=== PATIENT | male | born 1990 | race Caucasian/White ===

== ENCOUNTER 2024-12-13 14:44 | Emergency (ER) | payer SELFPAY ==
--- NOTE | 2024-12-13 15:26 | RAD REPORT ---
EXAM: CT CHEST, ABDOMEN AND PELVIS WITHOUT CONTRAST CLINICAL INDICATION: chest pain, epigastric pain, hematemesis TECHNIQUE: CT chest, abdomen and pelvis was performed without contrast, as per department protocol. A xial, sagittal and coronal reconstructions were obtained. One or more of the following dose reduction techniques were used: Automated exposure control, adjustment of the mA and/or kV according to patient size, and/or iterative reconstruction. Unless otherwise specified, incidental findings do not require dedicated imaging follow-up. Examination is limited by the lack of intravenous contrast material. COMPARISON: No prior exam. FINDINGS: LUNGS: No evidence of airspace or interstitial process. No nodules. PLEURA: No pleural effusion. No pneumothorax. MEDIASTINUM AND LYMPH NODES: No mediastinal mass or fluid collection. Normal size mediastinal, hilar, and axillary lymph nodes. OSSEOUS STRUCTURES AND CHEST WALL: Intact. LIVER: Normal in size and contour. No focal lesion or biliary dilatation. Grossly unremarkable gallbl adder. PANCREAS: No mass, ductal dilation, or yin-pancreatic fluid. SPLEEN: Normal size. No focal lesion. ADRENALS: Normal; no mass. KIDNEYS: Normal size and contour. No hydronephrosis. URINARY BLADDER: Normal contour. GASTROINTESTINAL TRACT: No bowel obstruction, free air, significant free fluid or abscess. APPENDIX: Normal appendix. LYMPH NODES: No lymphadenopathy. MUSCULOSKELETAL: No acute or suspicious osseous abnormality. OTHER: IMPRESSION: No acute or significant abnormalities seen in the chest, abdomen or pelvis.
--- NOTE | 2024-12-13 15:26 | RAD REPORT ---
EXAMINATION: ONE VIEW CHEST XR CLINICAL INDICATION: Dyspnea;Cough TECHNIQUE: Frontal chest projection is submitted. Examination is limited by patient positioning and t echnique. COMPARISON: 09/20/2013 FINDINGS: The lungs are well inflated and clear. The heart is normal in size. No displaced fractures identified . IMPRESSION: No acute intrathoracic abnormalities.
[2024-12-13] MEDS ORDERED: PANTOPRAZOLE 40 MG INJ ONE (15:32)
[2024-12-13] MEDS ORDERED: ONDANSETRON 4 MG/2 ML VIAL ONE (15:32)
[2024-12-13] MEDS ORDERED: NA CHLORIDE 0.9% 500 ML ONE (15:33)
[2024-12-13 16:20] LABS: Absolute Eosinophils 0.3 K/uL (0-0.5); Absolute Monocytes 0.9 K/uL (0.1-1.3); Absolute Neutrophil 4.5 K/uL (1.8-8.0); Basophils % 0.5 % (0-1.3); Eosinophils % 4.4 % (0-4.4); Hemoglobin 15.6 g/dL (13.6-17.9); Lymphocytes % 25.9 % (15.3-44.8); MCH 31.2 pg (27.0-35.0); MCHC 34.8 g/dL (32.0-36.0); MCV 89.6 fL (80-100); MPV 8.7 fL (7.6-11.3); Monocytes % 11.1 % (3.3-12.3); Neutrophils % 58.1 % (41.7-73.7); Nucleated Red Blood Cells % 0.1 % (0-0); Platelets 249 thou/uL (152-406); RBC Red Blood Cell Count 5.02 M/uL (4.33-5.43); Red Cell Distribution Width 13.2 % (12.1-15.2)
[2024-12-13 16:33] LABS: Influenza A Ag Negative; Influenza B Ag Negative; SARS-CoV-2 Antigen Rapid Res Negative (Negative)
[2024-12-13 16:34] LABS: Albumin 3.9 g/dL (3.4-5.0); Albumin/Globulin Ratio 0.9 (1.1-1.8); Anion Gap 5.2 mEq/L (5.0-15.0); Bilirubin Total 0.6 mg/dL (0.2-1.0); Globulin 4.2 g/dL (2.3-3.5); Potassium 4.2 mEq/L (3.5-5.1); Protein, Total 8.1 g/dL (6.4-8.2)
--- NOTE | 2024-12-13 17:00 | ER ---
Nurse's Notes [facility] Name: Karlos Rodriguez Age: 34 yrs Sex: Male : 1990 Arrival Date: 12/13/2024 Time: 14:44 Bed 15 Private MD: Diagnosis: Hematemesis;Fever, unspecified Presentation: 12/13 14:52 Chief complaint: Patient states: Abdominal pain, fever, and N/V/D for 3 days. + cough. ll1 Started vomiting clots of blood today. Coronavirus screen: Client denies travel out of the [place] in the last 14 days. At this time, the client does not indicate any symptoms associated with coronavirus-19. Ebola Screen: Patient denies travel to an Ebola-affected area in the 21 days before illness onset. Initial Sepsis Screen: Does the patient meet any 2 criteria? No. Patient's initial sepsis screen is negative. Does the patient have a suspected source of infection? No. Patient's initial sepsis screen is negative. Risk Assessment: Do you want to hurt yourself or someone else? Patient reports no desire to harm self or others. Onset of symptoms was December 11, 2024. 14:52 Method Of Arrival: Ambulatory ll1 14:52 Acuity: KRYSTAL 3 ll1 Triage Assessment: 14:55 General: Appears uncomfortable, Behavior is calm, cooperative, appropriate for age, ll1 Reports feeling ill for fatigue for. Pain: Complains of pain in chest Quality of pain is described as aching. Neuro: Reports weakness. Respiratory: Reports shortness of breath cough that is. GI: Reports diarrhea, nausea, vomiting. 16:00 Respiratory: Onset: The symptoms/episode began/occurred yesterday, the patient has mild kj2 shortness of breath. Historical: - Allergies: 14:51 Iodine; ll1 - Home Meds: 14:51 None [Active]; ll1 - PMHx: 14:51 None; ll1 - PSHx: 14:51 None; ll1 - Immunization history:: Adult Immunizations unknown. - Infectious Disease History:: Denies. - Social history:: Smoking status: Patient denies any tobacco usage or history of. - Family history:: not pertinent. - Hospitalizations: : No recent hospitalization is reported. Screenin:15 [facility] ED Fall Risk Assessment (Adult) History of falling in the last 3 months, kj2 including since admission No falls in past 3 months (0 pts) Confusion or Disorientation No (0 pts) Intoxicated or Sedated No (0 pts) Impaired Gait No (0 pts) Mobility Assist Device Used No (0 pt) Altered Elimination No (0 pt) Score/Fall Risk Level 0 - 2 = Low Risk Maintained a safe environment, Hourly rounding (assess needs \T\ fall precautionary measures) done. Abuse screen: Denies threats or abuse. Denies injuries from another. Nutritional screening: No deficits noted. Tuberculosis screening: No symptoms or risk factors identified. Assessment: 15:30 General: Appears in no apparent distress. Behavior is calm, cooperative. Neuro: Level kj2 of Consciousness is awake, alert, Oriented to person, place, time, situation. Cardiovascular: Patient's skin is warm and dry. Respiratory: Airway is patent Respiratory effort is even, unlabored. GI: Reports nausea, vomiting. : No signs and/or symptoms were reported regarding the genitourinary system. 15:30 Respiratory: Breath sounds are clear bilaterally. kj2 16:30 Reassessment: Patient appears in no apparent distress at this time. Patient and/or kj2 family updated on plan of care and expected duration. Pain level reassessed. Patient is alert, oriented x 3, equal unlabored respirations, skin warm/dry/pink. 17:13 Reassessment: Patient appears in no apparent distress at this time. Patient and/or kj2 family updated on plan of care and expected duration. Pain level reassessed. Patient is alert, oriented x 3, equal unlabored respirations, skin warm/dry/pink. 17:16 Cardiovascular: Rhythm is regular. kj2 Vital Signs: 14:52 BP 151 / 76; Pulse 95; Resp 24; Temp 98.1; Pulse Ox 100% ; Weight 81.65 kg; Height 5 ll1 ft. 5 in. ; Pain 9/10; 16:00 BP 124 / 84; Pulse 78; Resp 20; Pulse Ox 100% ; kj2 16:57 Pulse 86; Resp 16; rn 17:14 BP 129 / 80; Pulse 80; Resp 20; Temp 98; Pulse Ox 100% ; kj2 14:52 Body Mass Index 29.95 (81.65 kg, 165.1 cm) ll1 14:52 Pain Scale: Adult ll1 ED Course: 14:48 Patient arrived in ED. cj3 14:49 Hermilo Mirza MD is Attending Physician. rn 14:53 Triage completed. ll1 14:56 Arm band placed on Patient placed in an exam room, on a stretcher. ll1 15:05 Jaimee Villanueva, ORI is Primary Nurse. kj2 15:14 CT Chest Abdomen Pelvis W/O Contrast In Process Unspecified. EDMS 15:22 Chest Single View XRAY In Process Unspecified. EDMS 15:30 Patient has correct armband on for positive identification. Bed in low position. Side kj2 rails up X 1. Provided Education on: call light. 15:45 Missed attempt(s): 20 gauge in right antecubital area. rk3 15:55 Inserted saline lock: 20 gauge in left antecubital area, using aseptic technique. Blood kj2 collected. Flushed with 10 mL NS. 16:25 Type And Screen Sent. kj2 17:16 No provider procedures requiring assistance completed. IV discontinued, intact, kj2 bleeding controlled, No redness/swelling at site. Pressure dressing applied. Administered Medications: 16:08 Drug: Pantoprazole IVP 40 mg IVP once Route: IVP; Site: left antecubital; kj2 17:13 Follow up: Response: No adverse reaction kj2 16:08 Drug: Ondansetron IVP 4 mg IVP once; over 2 minutes Route: IVP; Site: left antecubital; kj2 17:13 Follow up: Response: No adverse reaction kj2 16:08 Drug: NS 0.9% IV 500 ml 500 ml IV at 1 bolus once; to be given as a bolus over 30 kj2 minutes Volume: 500 ml; Route: IV; Rate: 1 bolus; Site: left antecubital; 17:13 Follow up: IV Status: Completed infusion; IV Intake: 500ml kj2 17:12 Not Given (Physician Discretion; MD ): pantoprazole8 mg/hr IV at 25 ml/hr continuous; kj2 (Standard dilution is 80 mg in 250 mL NS) Medication: 17:15 VIS not applicable for this client. kj2 Intake: 17:13 IV: 500ml; Total: 500ml. kj2 Outcome: 17:00 Discharge ordered by . rn 17:17 Discharged to home ambulatory, kj2 17:17 Condition: stable 17:17 Discharge instructions given to patient, Instructed on discharge instructions, follow up and referral plans. Demonstrated understanding of instructions, follow-up care, 17:38 Patient left the ED. kj2 Signatures: Dispatcher [employer] EDHermilo Lemons MD MD rn Lewis, Lynsay RN RN ll1 Jaimee Villanueva RN RN kj2 Jazmyn Bradford rk3 Armida Katz cj3 Corrections: (The following items were deleted from the chart) 14:58 14:52 BP 151 / 76; Pulse 95bpm; Resp 17bpm; Pulse Ox 100%; Temp 98.1F; 81.65 kg; Height ll1 5 ft. 5 in.; BMI: 29.9; Pain 9/10, Adult; ll1
--- NOTE | 2024-12-13 17:00 | EDPHYS ---
Physician Documentation [facility] Name: Karlos Rodriguez Age: 34 yrs Sex: Male : 1990 Arrival Date: 12/13/2024 Time: 14:44 Bed 15 Private MD: ED Physician Hermilo Mirza HPI: 12/13 15:01 This 34 yrs old Male presents to ER via Ambulatory with complaints of Vomiting Blood, rn Breathing Difficulty, Fever. 15:01 The patient presents to the emergency department with nausea, vomiting, abdominal pain. rn Onset: The symptoms/episode began/occurred 2 day(s) ago. Possible causes: unknown. The symptoms are aggravated by nothing. The symptoms are alleviated by nothing. Associated signs and symptoms: Pertinent positives: abdominal pain, diarrhea, fever, GI bleeding, nausea, vomiting. Severity of symptoms: At their worst the symptoms were moderate in the emergency department the symptoms are unchanged. The patient has not experienced similar symptoms in the past. Patient reports feeling sick for 2 days with fever, cough, myalgias. Has been throwing up for 2 days, initially did not have blood, now today has had 2 episodes of hematemesis, has clot in emesis. Reports has been having diarrhea as well, nonbloody. No chronic lung issues. Is a daily drinker drinks 3-4 beers a day. No history of GI bleed in the past.. Historical: - Allergies: 14:51 Iodine; ll1 - Home Meds: 14:51 None [Active]; ll1 - PMHx: 14:51 None; ll1 - PSHx: 14:51 None; ll1 - Immunization history:: Adult Immunizations unknown. - Infectious Disease History:: Denies. - Social history:: Smoking status: Patient denies any tobacco usage or history of. - Family history:: not pertinent. - Hospitalizations: : No recent hospitalization is reported. ROS: 15:01 Constitutional: Positive for fever and chills Cardiovascular: Negative for chest pain, rn palpitations, and edema, Respiratory: Positive for shortness of breath and cough Abdomen/GI: Positive for epigastric abdominal pain with nausea and vomiting and diarrhea. Positive for 2 episodes of hematemesis MS/Extremity: Negative for injury and deformity, Skin: Negative for injury, rash, and discoloration, Neuro: Positive for generalized weakness and malaise Exam: 15:01 Constitutional: This is a well developed, well nourished patient who is awake, alert, rn appears anxious Eyes: Pale conjunctiva absent ENT: Dry mucous membranes Cardiovascular: Regular rate and rhythm. No pulse deficits. Respiratory: Moderate tachypnea, no retractions Abdomen/GI: Soft, epigastric tenderness. No rebound or guarding Skin: No cyanosis MS/ Extremity: Pulses equal, no cyanosis. Neuro: Awake and alert, GCS 15 16:39 ECG was reviewed by the Attending Physician. rn Vital Signs: 14:52 BP 151 / 76; Pulse 95; Resp 24; Temp 98.1; Pulse Ox 100% ; Weight 81.65 kg; Height 5 ll1 ft. 5 in. ; Pain 9/10; 16:00 BP 124 / 84; Pulse 78; Resp 20; Pulse Ox 100% ; kj2 16:57 Pulse 86; Resp 16; rn 17:14 BP 129 / 80; Pulse 80; Resp 20; Temp 98; Pulse Ox 100% ; kj2 14:52 Body Mass Index 29.95 (81.65 kg, 165.1 cm) ll1 14:52 Pain Scale: Adult ll1 MDM: 14:49 Medical Screening Exam initiated rn 16:58 Differential diagnosis: Nonspecific abd pain, gastritis, cholecystitis, pancreatitis, rn appendicitis, diverticulitis, viral gastroenteritis, gastroenteritis. Differential diagnosis: Morelia-Mistry tear, ulcer, gastritis. Data reviewed: vital signs, nurses notes, lab test result(s), EKG, radiologic studies, CT scan, plain films, and as a result, I will discharge patient. Counseling: I had a detailed discussion with the patient and/or guardian regarding the historical points, exam findings, and any diagnostic results supporting the discharge/admit diagnosis, lab results, radiology results, the need for outpatient follow up, to return to the emergency department if symptoms worsen or persist or if there are any questions or concerns that arise at home. Special discussion: I discussed with the patient/guardian in detail that at this point there is no indication for admission to the hospital. It is understood, however, that if the symptoms persist or worsen the patient needs to return immediately for re-evaluation. Based on the history and exam findings, there is no indication for further emergent testing or inpatient evaluation. I discussed with the patient/guardian the need to see the [employer] professor for further evaluation of the symptoms. I discussed with the patient/guardian the need to see the primary care provider for further evaluation of the symptoms. ED course: No acute findings and workup. CT chest abdomen pelvis negative. Patient feels better after IV fluids and Zofran. Sounds like patient has systemic viral infection, given systemic symptoms then after 2 days had small amount of hematemesis, likely Morelia-Mistry tear. Has not thrown up or had episode of hematemesis since arrival here. Will discharge home with return precautions as of normal H\T\H and vitals. Normal WBC. Normal lactate. Normal ECG.. 12/13 15:00 Order name: COVID-19 Ag + Flu A+B Ag; Complete Time: 16:35 12/13 15:00 Order name: Blood Culture Adult (2) 12/13 15:00 Order name: CBC with Diff; Complete Time: 16:29 12/13 15:00 Order name: CMP; Complete Time: 16:35 12/13 15:00 Order name: Lactate w/ 2H reflex if indic.; Complete Time: 16:41 12/13 15:00 Order name: Protime (+inr) 12/13 15:00 Order name: Ptt, Activated rn 12/13 15:00 Order name: Type And Screen rn 12/13 15:00 Order name: Chest Single View XRAY; Complete Time: 15:27 rn 12/13 15:00 Order name: CT Chest Abdomen Pelvis W/O Contrast; Complete Time: 15:27 12/13 15:00 Order name: Accucheck rn 12/13 15:00 Order name: Cardiac monitoring rn 12/13 15:00 Order name: EKG - Nurse/Tech; Complete Time: 16:56 rn 12/13 15:00 Order name: IV Saline Lock - Large Bore rn 12/13 15:00 Order name: Labs collected and sent rn 12/13 15:00 Order name: O2 Per Protocol rn 12/13 15:00 Order name: O2 Sat Monitoring rn 12/13 15:00 Order name: Vital Signs rn 12/13 16:10 Order name: Labs - recollect needed: TS; Complete Time: 16:25 bc6 EC:39 Rate is 76 beats/min. Rhythm is regular. QRS [place] is Normal. SD interval is normal. QRS rn interval is normal. QT interval is normal. No Q waves. T waves are Normal. No ST changes noted. Clinical impression: Normal ECG. Interpreted by me. Reviewed by me. Administered Medications: 16:08 Drug: Pantoprazole IVP 40 mg IVP once Route: IVP; Site: left antecubital; kj2 17:13 Follow up: Response: No adverse reaction kj2 16:08 Drug: Ondansetron IVP 4 mg IVP once; over 2 minutes Route: IVP; Site: left antecubital; kj2 17:13 Follow up: Response: No adverse reaction kj2 16:08 Drug: NS 0.9% IV 500 ml 500 ml IV at 1 bolus once; to be given as a bolus over 30 kj2 minutes Volume: 500 ml; Route: IV; Rate: 1 bolus; Site: left antecubital; 17:13 Follow up: IV Status: Completed infusion; IV Intake: 500ml kj2 17:12 Not Given (Physician Discretion; ): pantoprazole8 mg/hr IV at 25 ml/hr continuous; kj2 (Standard dilution is 80 mg in 250 mL NS) Disposition Summary: 12/13/24 17:00 Discharge Ordered Notes: Location: Home rn Problem: new rn Symptoms: have improved rn Condition: Stable rn Diagnosis - Hematemesis rn - Fever, unspecified rn Followup: rn - With: Private Physician - When: As needed - Reason: Recheck today's complaints, Re-evaluation by your physician Discharge Instructions: - Discharge Summary Sheet rn - Fever, Adult rn - Gastrointestinal Bleeding rn - Hematemesis rn Forms: - Medication Reconciliation Form rn - Antibiotic linux kernel developer - Prescription Opioid Use rn - Patient Portal Instructions rn - Leadership Thank You Letter rn Prescriptions: - ondansetron 4 mg Oral Tablet,disintegrating - take 1 tablet ORAL route every 8 hours As needed; 12 tablet; Refills: 0, rn Product Selection Permitted - Augmentin 875-125 mg Oral Tablet - take 1 tablet ORAL route every 12 hours for 10 days; 20 tablet; Refills: 0, rn Product Selection Permitted - Protonix 40 mg Oral Tablet - take 1 tablet ORAL route once daily; 30 tablet; Refills: 0, Product Selection rn Permitted Signatures: Dispatcher [employer] EDHermilo Lemons MD MD rn Lewis, Lynsay RN RN ll1 Karis Kee [facility] Jaimee Villanueva RN RN kj2 Corrections: (The following items were deleted from the chart) 15:00 15:00 Chest Abdomen Pelvis Wo Con+CT.RAD.BRZ ordered. EDMS EDMS 15:00 15:00 TYPE AND SCREEN+BB.LAB.BRZ ordered. EDMS EDMS
[2024-12-13 17:27] LABS: PT Prothrombin Time 12.2 SECONDS (10-13.0); Protime INR 1.07
[2024-12-13 18:01] VITALS: O2SAT 100
[2024-12-13 18:05] VITALS: BP 129/80; TEMP 98
== END 2024-12-13 17:38 | disposition home or self-care (01) ==
LOC: ER 14:44
DX: K92.0 Hematemesis (principal); R50.9 Fever, unspecified; Z11.52 Encounter for screening for COVID-19
CPT/HCPCS: 36415; 71045; 71250; 74176; 80053; 83605; 85025; 85610; 85730; 86850; 86900; 86901; 87040; 87428; 93005; 96361; 96374; 96375; 99284; J2405; J2470; J7040